=== PATIENT | male | born 1985 | race Caucasian/White ===

== ENCOUNTER 2017-01-25 09:57 | Emergency (ER) | payer SELFPAY ==
--- NOTE | ~2017-01-25 | ENPV ---
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 No evidence of thrombophlebitis is noted in right lower extremity in the deep and superficial veins of the legs. Procedure Type of Study: Veins:Lower Extremities DVT Study, Lower Extremity Right. Indications for Study:Pain in Limb and Swelling of Limb. Appropriate Use Criteria:9 Patient Status:STAT. Study Location:ER. Technical Quality:Good visualization. - Preliminary reported to:Dr. Gloria. Velocities are measured in cm/s ; Diameters are measured in cm Right Lower Extremities DVT Study Measurements Right 2D and Doppler Measurements + + + + +------+------+ + !Location !Visualized!Compressibility!Thrombosis!Signal!Reflux!Reflux ! ! ! ! ! ! ! !(sec) ! + + + + +------+------+ + !GSV Thigh !Yes !Yes !None !Phasic! ! ! + + + + +------+------+ + !Common !Yes !Yes !None !Phasic! ! ! !Femoral ! ! ! ! ! ! ! + + + + +------+------+ + !Prox !Yes !Yes !None !Phasic! ! ! !Femoral ! ! ! ! ! ! ! + + + + +------+------+ + !Mid Femoral!Yes !Yes !None ! ! ! ! + + + + +------+------+ + !Dist !Yes !Yes !None !Phasic! ! ! !Femoral ! ! ! ! ! ! ! + + + + +------+------+ + !Popliteal !Yes !Yes !None !Phasic! ! ! + + + + +------+------+ + !Gastroc !Yes !Yes !None ! ! ! ! + + + + +------+------+ + !PTV !Yes !Yes !None ! ! ! ! + + + + +------+------+ + !Peroneal !Yes !Yes !None ! ! ! ! + + + + +------+------+ + Signature dtt: CARON PRO dtd: 01/25/17 1045 Physician Self Edjeovanny
--- NOTE | ~2017-01-25 | ER ---
PATIENT'S NAME: FARA LUCIO [facility] AGE: 31 Y [address] ROOM: [place] [address] LOCATION: ED ADMIT DATE: 01/25/2017 ER/Outpatient Report DISCHARGE DATE: 01/25/2017 FAMILY PHYSICIAN: ROSSY SALGUERO ATTENDING PHYSICIAN: Aruna Gloria Time of Arrival: 0957 hours. Time of Evaluation: 1018 hours. IDENTIFICATION: A 31-year-old male. CHIEF COMPLAINT: Ankle swelling. HISTORY OF PRESENT ILLNESS: The patient has had diffuse myalgias, joints have been aching, he has had a cough productive of yellow sputum, tiredness, slightly dizzy, swelling of his ankles, and then he has had a rash just above his right ankle. This has all been going on for the last 3 weeks. 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 They did travel to [place] in October, the family did. No tick bites that he is aware of. He has had fever and chills with a T-max of 102. The family recently developed upper respiratory symptoms within the last couple of days, but he has had these symptoms ongoing for the last 3 weeks. CURRENT MEDICATIONS: 1. Metoprolol 25 mg daily. 2. Ibuprofen 800 mg at 6:30 a.m. today. ALLERGIES: NO KNOWN DRUG ALLERGIES. MEDICAL PROBLEMS: Hypertension, palpitations. PRIOR SURGERIES: Denies. SOCIAL HISTORY: The patient is . Lives in [place]. Tobacco use, chewing tobacco. Alcohol use, 6 packs daily. FAMILY HISTORY: No pertinent family history. PATIENT'S NAME: FARA LUCIO [facility] AGE: 31 Y [address] ROOM: [place] [address] LOCATION: ED ADMIT DATE: 01/25/2017 ER/Outpatient Report DISCHARGE DATE: 01/25/2017 FAMILY PHYSICIAN: ROSSY SALGUERO ATTENDING PHYSICIAN: Aruna Gloria REVIEW OF SYSTEMS: All systems reviewed negative other than what is noted in the HPI. PHYSICAL EXAMINATION: VITAL SIGNS: Height 6 feet 1 inch, weight 105.6 kg, blood pressure 148/87, pulse 89, respirations 16, temperature 98.5, saturations 97% on room air. GENERAL: Pleasant male in no acute distress. HEENT: Normocephalic, atraumatic. Ears: TMs are translucent both ears. Eyes: Pupils are equal and reactive to light and accommodation. Extraocular movements intact. Nose: Mucosa erythematous, congested. Clear drainage. Mouth: No lesions. Pharynx benign. NECK: Supple. No lymphadenopathy. LUNGS: Clear to auscultation. HEART: Regular rate and rhythm. No murmur, rub, or gallop. ABDOMEN: Bowel sounds are present. Soft, nondistended. No hepatosplenomegaly. No palpable masses. Nontender. SKIN: Mazie, warm, and dry. The patient has a rash on his right lower extremity just above his ankle that appears to be a rash consistent with erythema migrans, it is an erythematous rash with central clearing, an irregular border on the superior margin, slightly warm, not really tender to palpation. EXTREMITIES: He has bilateral lower extremity edema, mostly in the ankles, right greater than left. No calf tenderness. NEURO: The patient is alert and oriented x4. Cranial nerves 2 through 12 grossly intact. Motor strength, strength 5/5 throughout. Sensation is intact to light touch. LABORATORY DATA AND X-RAYS: X-rays of both ankles negative for acute fracture or dislocation, pending Radiology over-read. Chest x-ray, 2 views, no acute process, pending Radiology over-read. Right lower extremity ultrasound negative for DVT, hemoglobin 13.9, hematocrit 42.2, platelets 411, white count 7.9 with a normal differential. Sedimentation rate 52. INR 1.0. Procalcitonin less than 0.05. Blood cultures x2 pending. Sodium 140, potassium 3.9, chloride 104, CO2 27, BUN 8, creatinine 0.9, blood sugar 101. Liver enzymes are normal. GFR greater than 60. CRP elevated at 8.11. Influenza A and B negative. UA negative. INR 1.0. Lactate 1.1. EKG: Sinus rhythm at 75 beats per minute. No acute ST elevation or depression. No conduction delays. IMPRESSION: Possible Lyme disease. PLAN: Doxycycline 100 mg b.i.d. for 21 days. Tylenol or ibuprofen. Follow up with PATIENT'S NAME: KHADIJAH, FARA J [facility] AGE: 31 Y [address] ROOM: [place], [place] [address] LOCATION: [facility] ADMIT DATE: 01/25/2017 ER/Outpatient Report DISCHARGE DATE: 01/25/2017 FAMILY PHYSICIAN: PHYSICIAN, ROSSY ATTENDING PHYSICIAN: Aruna Gloria primary care physician. Establish care and follow up in 1-2 days. Follow up sooner if any problems or concerns. The patient understands and agrees, and all questions have been answered. Blood culture is pending and urine culture is pending. The patient and his understand and agree. MD GINETTE WHITFIELD/chata /[id number] d: 01/25/17 2336 t: 01/26/17 1442, OUTPATIENT REPORT
[2017-01-25 10:49] LABS: BASOPHIL # 0.1 K/uL (0.0-0.2); BASOPHIL % 0.8 %; EOSINOPHIL # 0.1 K/uL (0.0-0.5); EOSINOPHIL % 1.5 %; HEMATOCRIT 42.2 % (37.0-53.0); HEMOGLOBIN 13.9 g/dL (12.0-17.0); IMMATURE GRANULOCYTE % 0.5 %; LYMPHOCYTE # 1.4 K/uL (0.8-4.0); LYMPHOCYTE % 18.1 %; MCH 28.5 pg (27.0-34.0); MCHC 32.9 gm/dL (32.0-36.5); MCV 86.7 fl (83.0-98.0); MONOCYTE # 0.8 K/uL (0.0-1.0); MONOCYTE % 9.7 %; MPV 10.2 fl (9.4-12.4); NEUTROPHIL # (ANC) 5.5 K/uL (1.4-9.0); NEUTROPHIL % 69.4 %; NRBC % 0 /100WBC (0-0.00); PLATELET COUNT 411 K/uL (150-450); RBC 4.87 M/uL (4.00-6.00); RDW-CV 12.2 % (11.9-14.6); WBC 7.9 K/uL (4.0-11.0)
[2017-01-25 10:51] LABS: BILIRUBIN URINE NEGATIVE (NEGATIVE); BLOOD URINE NEGATIVE /UL (NEGATIVE); COLOR URINE YELLOW (YELLOW); GLUCOSE URINE NEGATIVE (NEGATIVE); KETONE URINE NEGATIVE (NEGATIVE); LEUKOCYTES URINE NEGATIVE /UL (NEGATIVE); NITRITE URINE NEGATIVE (NEGATIVE); PROTEIN URINE NEGATIVE (NEGATIVE); TURBIDITY URINE CLEAR (CLEAR); UROBILINOGEN URINE NORMAL (NORMAL)
[2017-01-25 10:56] LABS: PROTIME 10.3 SECONDS (9.6-11.1); PTT 29 SECONDS (25-32)
[2017-01-25 11:06] LABS: ALK PHOS 130 IU/L (33-138); ALT 59 IU/L (12-78); ANION GAP 12.9 (10.0-19.0); AST 27 IU/L (10-40); BLOOD UREA NITROGEN 8 mg/dL (6-24); CALCIUM 9.3 mg/dL (8.5-10.5); CHLORIDE 104 mMol/L (96-110); CO2 27 mMol/L (22-32); CREATININE 0.9 mg/dL (0.6-1.3); ESTIMATED GFR (MDRD EQUATION) > 60; POTASSIUM 3.9 mMol/L (3.7-5.1); SODIUM 140 mMol/L (135-145); TOTAL BILIRUBIN 0.3 mg/dL (0.0-1.5); TOTAL PROTEIN 8.4 g/dL (6.0-8.4)
== END 2017-01-25 12:08 | disposition disaster alternative care site (69) ==
LOC: GMED 09:57
PROVIDERS: Family Medicine
DX: R60.0 Localized edema (principal); I10 Essential (primary) hypertension; F17.220 Nicotine dependence, chewing tobacco, uncomplicated